=== PATIENT | male | born 1960 | race Caucasian/White ===

== ENCOUNTER 2022-11-16 11:23 | Inpatient (IN) ==
[2022-11-16 14:47] LABS: ABS Lymphocytes 1.9 10^3/ul (1.0-4.8); ABS Monocytes 1.2 10^3/ul (0-0.8); Eosinophil % 0.3 %; Hematocrit 47 % (42-52); Hemoglobin 16.2 g/dL (14.0-18.0); Lymphocyte % 17.3 %; Mean Corpuscular HGB Conc 35 g/dL (31-36); Mean Corpuscular Hemoglobin 32 pg (27-31); Mean Corpuscular Volume 93 fL (80-94); Mean Platelet Volume 8.5 fL (7.4-10.4); Nucleated Red Blood Cells % 0.1; Platelet Count 254 10^3/uL (150-450); Red Blood Count 5.02 10^6 /uL (4.18-5.48); Red Cell Distribution Width 13 % (10-15); White Blood Count 11.2 10^3/uL (3.5-10.8)
[2022-11-16 15:50] LABS: Albumin 4.7 g/dL (3.2-5.2); Albumin/Globulin Ratio 1.7 (1-3); C Reactive Protein 60.32 mg/L (<8.01); Calcium 10.4 mg/dL (8.6-10.3); Globulin 2.7 g/dL (2-4); Total Bilirubin 1.3 mg/dL (0.2-1.0); Total Protein 7.4 g/dL (6.4-8.9); eGFR CKD-EPI 85.6 (>60)
[2022-11-16] MEDS ORDERED: Iodixanol (CONTRAST) 320 MG/ML 100 ML SDV IV ONE (16:30)
[2022-11-16 16:53] LABS: Urine Appearance Clear; Urine Bilirubin Negative (Negative); Urine Blood Negative (Negative); Urine Color Yellow; Urine Glucose 3+(>=500 mg/dL) (Negative); Urine Ketones 1+ (Negative); Urine Nitrite Negative (Negative); Urine Protein Negative (Negative); Urine Specific Gravity 1.037 (1.002-1.030); Urine Urobilinogen Negative (Negative)
[2022-11-16] MEDS ORDERED: NS 0.9% 1000 ml BAG 1,000 ML IV ONE (19:18)
[2022-11-16] MEDS ORDERED: Ondansetron 4 mg VIAL 2 MG/ML 2 ml VIAL IV ONE (20:14)
[2022-11-17] MEDS ORDERED: Polyethylene Glycol 3350 17 GM PACKET PO PRN (03:43)
[2022-11-17] MEDS ORDERED: Morphine 2 MG/ML SYRINGE IV PRN (03:43)
[2022-11-17] MEDS ORDERED: Senna TAB 8.6 mg TAB PO PRN (03:43)
[2022-11-17] MEDS ORDERED: Ondansetron 4 mg VIAL 2 MG/ML 2 ml VIAL IV PRN (03:46)
[2022-11-17 05:22] LABS: ABS Lymphocytes 1.4 10^3/ul (1.0-4.8); ABS Monocytes 1.1 10^3/ul (0-0.8); ABS Neutrophils 7.4 10^3/ul (1.5-7.7); Eosinophil % 0.1 %; Hematocrit 43 % (42-52); Hemoglobin 14.9 g/dL (14.0-18.0); Lymphocyte % 14.3 %; Mean Corpuscular HGB Conc 34 g/dL (31-36); Mean Corpuscular Hemoglobin 32 pg (27-31); Mean Corpuscular Volume 92 fL (80-94); Mean Platelet Volume 8.4 fL (7.4-10.4); Platelet Count 205 10^3/uL (150-450); Red Blood Count 4.72 10^6 /uL (4.18-5.48); Red Cell Distribution Width 12 % (10-15); White Blood Count 9.9 10^3/uL (3.5-10.8)
[2022-11-17 06:07] LABS: Albumin 3.9 g/dL (3.2-5.2); Albumin/Globulin Ratio 1.5 (1-3); Calcium 9.3 mg/dL (8.6-10.3); Creatinine, Serum 0.98 mg/dL (0.67-1.17); Globulin 2.6 g/dL (2-4); Potassium 4.3 mmol/L (3.5-5.0); Total Protein 6.5 g/dL (6.4-8.9); eGFR CKD-EPI 87.7 (>60)
[2022-11-17] MEDS: Heparin 5000 UNITS/ML 1 mL VIAL SUBCUT SCH ×3 (06:49→21:10)
[2022-11-17] MEDS ORDERED: NF: DAPAGLIFLOZIN 10 MG TAB (NF) PO SCH (09:00)
[2022-11-17] MEDS ORDERED: Dextrose 50% Syringe 50 ml 25 GM/50 ML SYRINGE IV PUSH PRN (17:56)
[2022-11-17 18:53] LABS: Carcinoembryonic Antigen 1.1 ng/mL (0.1-5.0)
[2022-11-17 19:01] LABS: Ferritin 215.8 ng/mL (24-336)
[2022-11-17] MEDS ORDERED: Iodixanol (CONTRAST) 320 MG/ML 100 ML SDV IV ONE (20:03)
[2022-11-18] MEDS: Heparin 5000 UNITS/ML 1 mL VIAL SUBCUT SCH ×3 (05:04→22:08)
[2022-11-19] MEDS: Heparin 5000 UNITS/ML 1 mL VIAL SUBCUT SCH ×2 (05:56→12:50)
[2022-11-19 13:35] VITALS: BP 118/73
[2022-11-19 16:55] LABS: Chromogranin A 276 ng/mL (<93)
[2022-11-19 18:57] LABS: Beta 2 Microglobulin 1.74 mcg/mL
[2022-11-20] MEDS ORDERED: Lactated Ringers 1000 ml BAG 1,000 ML IV SCH (06:00)
[2022-11-20] MEDS ORDERED: NS 0.9% 1000 ml BAG 1,000 ML IV SCH (06:00)
[2022-11-20] MEDS ORDERED: Buffered Lidocaine 1% SYRIN 1 ml INTRADERM ONE ×2 (06:00)
[2022-11-20 13:57] LABS: Albumin 3.4 g/dL (3.4-4.7); Albumin/Globulin Ratio 0.94; Gamma Globulin 0.9 g/dL (0.6-1.6)
[2022-11-24 08:39] LABS: 5-Hydroxyindoleacetic Acid, U 8.2 mg/24 h (<=9.9)
== END 2022-11-19 15:45 | disposition home or self-care (01) | DRG 254 ==
LOC: ED 11:23 → EDHOLD 11:23 → MED 11-17 14:03
PROVIDERS: ADMIT Student in an Organized Health Care Education/Training Program; ATTEND Student in an Organized Health Care Education/Training Program